=== PATIENT | female | born 2000 | race Caucasian/White ===

== ENCOUNTER 2020-12-25 13:47 | Emergency (ER) | payer OTHER ==
[2020-12-25] MEDS ORDERED: IBUPROFEN 600 MG TABLET (FP) PO ONE ×2 (14:19→14:49)
[2020-12-25] MEDS ORDERED: ACETAMINOPHEN 500 MG TABLET (FP) PO ONE (14:19)
[2020-12-25 14:28] VITALS: BP 146/93; PULSE 119; TEMP 99.3; BMI 34.3
[2020-12-25] MEDS ORDERED: ACETAMINOPHEN 500 MG TABLET (FP) ONE (14:49)
== END 2020-12-25 15:53 | disposition home or self-care (01) ==
LOC: FER 13:47
DX: R51.9 Headache, unspecified (principal); R21 Rash and other nonspecific skin eruption
CPT/HCPCS: 84703; 99284-25

== ENCOUNTER 2021-07-14 16:07 | Emergency (ER) | payer OTHER ==
[2021-07-14 16:11] VITALS: TEMP 98.3; BMI 34.3
[2021-07-14] MEDS ORDERED: ACETAMINOPHEN 325 MG TABLET (FP) PO ONE (17:18)
[2021-07-14 18:08] LABS: BASO % 0.4 % (0-2.0); EOS % 1.3 % (0-4.5); HEMATOCRIT 40.9 % (32.4-45.2); HEMOGLOBIN 14.1 GM/dL (10.7-15.3); LYMPH % 22.6 % (8-40); MCH 29.4 pg (25.7-33.7); MCHC 34.5 g/dl (32.0-36.0); MEAN CELL VOLUME 85.3 fl (80-96); MEAN PLT VOLUME 7.6 fl (7.5-11.1); MONO % 5.1 % (3.8-10.2); NEUT % 70.6 % (42.8-82.8); PLATELET COUNT 357 10^3/uL (134-434); RBC 4.79 M/mm3 (3.60-5.2); RDW 12.7 % (11.6-15.6)
[2021-07-14 18:17] LABS: INR 1.21 (0.83-1.09); PROTHROMBIN TIME (PATIENT) 13.6 SEC (9.7-13.0)
[2021-07-14 18:20] LABS: ACTIVATED PTT 34.2 SECONDS (25.2-36.5)
[2021-07-14 18:23] LABS: ALBUMIN 4.4 g/dl (3.4-5.0); BLOOD UREA NITROGEN 15.8 mg/dL (7-18); CALCIUM 9.3 mg/dL (8.5-10.1)
[2021-07-14 18:26] LABS: CREATININE 0.8 mg/dL (0.55-1.3)
[2021-07-14 18:28] LABS: BILIRUBIN,TOTAL 0.4 mg/dL (0.2-1); TOT PROT 8.3 g/dl (6.4-8.2)
[2021-07-14 19:00] LABS: URINE APPEARANCE CLEAR; URINE BILIRUBIN NEGATIVE (NEGATIVE); URINE COLOR YELLOW; URINE GLUCOSE (UA) NEGATIVE (NEGATIVE); URINE KETONE TRACE (NEGATIVE); URINE LEUK ESTERASE NEGATIVE (NEGATIVE); URINE NITRITE NEGATIVE (NEGATIVE); URINE PROTEIN NEGATIVE (NEGATIVE); URINE UROBILINOGEN 0.2 mg/dL (0.2-1.0)
[2021-07-14 21:43] VITALS: BP 139/69; PULSE 96
== END 2021-07-14 21:44 | disposition home or self-care (01) ==
LOC: JER 16:07
DX: R10.9 Unspecified abdominal pain (principal)
CPT/HCPCS: 36415; 74177-TC; 76830-TC; 80053; 81003; 84703; 85025; 85610; 85730; 86850; 86900; 86901; 87086; 99285-25

== ENCOUNTER 2022-08-15 03:18 | Emergency (ER) | payer BC, OTHER ==
[2022-08-15 03:40] VITALS: TEMP 97.9; BMI 34.3
[2022-08-15 04:16] LABS: URINE APPEARANCE CLEAR; URINE BILIRUBIN NEGATIVE (NEGATIVE); URINE COLOR YELLOW; URINE GLUCOSE (UA) NEGATIVE (NEGATIVE); URINE KETONE NEGATIVE (NEGATIVE); URINE LEUK ESTERASE NEGATIVE (NEGATIVE); URINE NITRITE NEGATIVE (NEGATIVE); URINE PROTEIN NEGATIVE (NEGATIVE)
[2022-08-15 04:18] LABS: HCG,QUALITATIVE URINE Negative
[2022-08-15] MEDS ORDERED: ONDANSETRON 4 MG/2 ML VIAL IVPUSH ONE (04:42)
[2022-08-15] MEDS ORDERED: MAG HYDROX/AL HYDROX/SIMETH 30 ML UNIT-DOSE CUP PO ONE (04:42)
[2022-08-15] MEDS ORDERED: FAMOTIDINE 20 MG/50 ML IVPB 20 MG/50 ML MG IVPB ONE ×2 (04:42→05:02)
[2022-08-15] MEDS ORDERED: SODIUM CHLORIDE 1,000 ML IV STA ×2 (04:42→06:46)
[2022-08-15] MEDS ORDERED: MAG HYDROX/AL HYDROX/SIMETH 30 ML UNIT-DOSE CUP ONE (04:46)
[2022-08-15] MEDS ORDERED: ONDANSETRON 4 MG/2 ML VIAL ONE (05:02)
[2022-08-15] MEDS ORDERED: ACETAMINOPHEN INJECTION 100 ML IVPB ONE (05:02)
[2022-08-15 05:49] LABS: BASO % 0.3 % (0-2.0); EOS % 2.2 % (0-4.5); HEMATOCRIT 43.7 % (32.4-45.2); HEMOGLOBIN 14.2 GM/dL (10.7-15.3); LYMPH % 18.5 % (8-40); MCHC 32.5 g/dl (32.0-36.0); MEAN PLT VOLUME 8.4 fl (7.5-11.1); MONO % 5.9 % (3.8-10.2); NEUT % 73.1 % (42.8-82.8); PLATELET COUNT 346 10^3/uL (134-434); RBC 5.08 M/mm3 (3.60-5.2); RDW 13.2 % (11.6-15.6); WHITE BLOOD COUNT 16.5 K/mm3 (4.0-10.0)
[2022-08-15 06:08] LABS: CHLORIDE 101 mmol/L (98-107)
[2022-08-15 06:10] LABS: CALCIUM 8.6 mg/dL (8.5-10.1)
[2022-08-15 06:11] LABS: ALBUMIN 3.6 g/dl (3.4-5.0); CO2 24 mmol/L (21-32); GLUCOSE,RANDOM 146 mg/dL (74-106)
[2022-08-15 06:14] LABS: CREATININE 0.9 mg/dL (0.55-1.3)
[2022-08-15 06:15] LABS: TOT PROT 10.3 g/dl (6.4-8.2)
[2022-08-15 07:13] LABS: ANION GAP -5 MMOL/L (8-16); SODIUM 120 mmol/L (136-145)
[2022-08-15 08:29] LABS: CREATININE 0.8 mg/dL (0.55-1.3)
[2022-08-15 08:43] LABS: ALBUMIN 3.6 g/dl (3.4-5.0)
[2022-08-15 08:47] LABS: BILIRUBIN,DIRECT 0.1 mg/dL (0.0-0.2)
[2022-08-15 08:48] LABS: BILIRUBIN,TOTAL 0.4 mg/dL (0.2-1)
[2022-08-15 08:51] LABS: TOT PROT 7.1 g/dl (6.4-8.2)
[2022-08-15 10:15] VITALS: BP 122/83; RESP 20
[2022-08-15 17:24] VITALS: PULSE 93
== END 2022-08-15 10:15 | disposition home or self-care (01) ==
LOC: JER 03:18
PROC: 3E033GC Introduction of Other Therapeutic Substance into Peripheral Vein, Percutaneous Approach (ICD-10-PCS; principal; 2022-08-15)
DX: R10.84 Generalized abdominal pain (principal); R11.10 Vomiting, unspecified; R19.7 Diarrhea, unspecified
CPT/HCPCS: 0241U-QW; 36415; 74177-TC; 80048; 80053; 80076; 81003; 83690; 84703; 85025; 87086; 99285-25; Q9967